=== PATIENT | male | born 1955 | race Caucasian/White ===

== ENCOUNTER 2018-09-18 05:36 | Day surgery (SDC) | payer MEDICARE, BC ==
[2018-09-18] MEDS ORDERED: Dextrose 5%-Lactated Ringers 1,000 ML IV SCH (06:15)
[2018-09-18] MEDS ORDERED: Propofol 200 MG/20 ML SDV ONE (07:17)
[2018-09-18] MEDS ORDERED: Midazolam 1 MG/ML 2 ML SDV ONE (07:18)
[2018-09-18] MEDS ORDERED: fentaNYL 100 MCG/2 ML SDV ONE (07:18)
[2018-09-18 08:45] VITALS: BP 132/75
--- NOTE | 2018-09-20 10:53 | OR ---
DATE OF PROCEDURE: 09/18/2018 PREOPERATIVE DIAGNOSIS: History of colonic adenomatous polyps. POSTOPERATIVE DIAGNOSES: 1. Uncomplicated left colonic diverticulosis. 2. No recurrent colonic polyps. OPERATIVE PROCEDURE: Flexible colonoscopy. ANESTHESIA: IV sedation. INDICATION FOR PROCEDURE: This is a 63-year-old, presenting for followup colonoscopy who has had history of colonic adenomatous polyps being removed 2 years ago and we are seeing him for followup colonoscopy with biopsies and/or polypectomy as indicated. Potential risks including bleeding and perforation were discussed, and the patient wishes to proceed. DETAILS OF PROCEDURE: The patient was taken to the operating room and placed in a left lateral decubitus position. IV sedation was administered, after which the initial digital rectal exam was performed and was unremarkable. Colonoscope was then passed into the rectum with retroflexion revealing uncomplicated hemorrhoidal columns. The scope was eventually passed to the level of the cecum. The prep was fairly good. There was small amount of liquid stool and scattered solid stool present with the vast majority of the mucosal surfaces being well visualized. The patient had a moderate amount of uncomplicated left colonic diverticula, but otherwise there was no recurrent polyps and no areas of colitis. Scope was then withdrawn and the above findings reconfirmed, and the procedure was then concluded. With the patient having history of colonic polyps, a 5-year followup colonoscopy should be considered. Bryce Laguna MD /[id number]
== END 2018-09-18 08:50 | disposition home or self-care (01) ==
LOC: JP.SDS 05:36
PROVIDERS: ATTEND Surgery
DX: Z12.11 Encounter for screening for malignant neoplasm of colon (principal); K57.30 Diverticulosis of large intestine without perforation or abscess without bleeding; K64.9 Unspecified hemorrhoids; I10 Essential (primary) hypertension; E78.5 Hyperlipidemia, unspecified; Z86.010 Personal history of colon polyps
CPT/HCPCS: G0105; J2250; J2704; J3010; J7042

== ENCOUNTER 2024-12-03 08:43 | Day surgery (SDC) | payer MEDICARE, BC ==
[2024-12-03] MEDS: Lactated Ringers 1,000 ML IV SCH (10:14)
[2024-12-03] MEDS ORDERED: Propofol 200 MG/20 ML SDV ONE (10:19)
[2024-12-03] MEDS ORDERED: fentaNYL 100 MCG/2 ML SDV ONE (10:19)
[2024-12-03 12:22] VITALS: BP 123/58; PULSE 77
== END 2024-12-03 12:20 | disposition home or self-care (01) ==
LOC: JP.SDS 08:43
PROVIDERS: ATTEND Surgery
DX: Z12.11 Encounter for screening for malignant neoplasm of colon (principal); K57.30 Diverticulosis of large intestine without perforation or abscess without bleeding; I10 Essential (primary) hypertension; Z86.0100 Personal history of colon polyps, unspecified
CPT/HCPCS: G0121; J2704; J3010; J7120; 00812-QZ